=== PATIENT | female | born 1985 | race Caucasian/White ===

== ENCOUNTER 2019-03-04 11:03 | Emergency (ER) | payer OTHER ==
[~2019-03-04] VITALS: Ht 175.3 cm; Wt 64.4 kg
[2019-03-04 11:03] VITALS: BP 126/71
[2019-03-04 11:31] LABS: BASO % 1 % (0-3); EOS # 0.2 x10^3/uL (0.0-0.7); EOS % 4 % (0-3); HEMATOCRIT 38.6 % (36.0-47.0); HEMOGLOBIN 13.1 g/dL (12.0-15.5); LYMPH # 0.9 x10^3/uL (1.0-4.8); LYMPH % 19 % (24-48); MEAN CORPUSCULAR HEMOGLOBIN 31 pg (25-35); MEAN CORPUSCULAR HGB CONC 34 g/dL (31-37); MEAN CORPUSCULAR VOLUME 91 fL (79-100); MONO # 0.6 x10^3/uL (0.0-1.1); MONO % 13 % (0-9); NEUT % 64 % (31-73); PLATELET COUNT 187 x10^3/uL (140-400); RED BLOOD COUNT 4.23 x10^6/uL (3.50-5.40); RED CELL DISTRIBUTION WIDTH 13.1 % (11.5-14.5); WHITE BLOOD COUNT 4.7 x10^3/uL (4.0-11.0)
[2019-03-04 11:42] LABS: ALBUMIN 3.8 g/dL (3.4-5.0); ALBUMIN/GLOBULIN RATIO 1.3 (1.0-1.7); CREATININE 0.8 mg/dL (0.6-1.0); GFR 82.6; POTASSIUM 4.1 mmol/L (3.5-5.1); TOTAL BILIRUBIN 0.2 mg/dL (0.2-1.0); TOTAL PROTEIN 6.8 g/dL (6.4-8.2)
--- NOTE | 2019-03-04 11:42 | PHYS DOC ---
Adult General Chief Complaint Chief Complaint: CHEST PAIN HPI HPI 34-year-old female presents with right-sided chest pain. She started having chest pain yesterday a right-sided. She describes it as a heaviness. It now radiates through to her back at the same level. It is mild to moderate in intensity. 3 days ago, the patient had a fever and nausea. Everyone her household had similar symptoms. These resolved 2 days ago. The patient is attempting to get . She had an elevated hCG, but began having bleeding with clots yesterday. She has had miscarriage in the past and it was similar. Her last menstrual period before now was 4 weeks ago. Patient denies history of cardiac disease, pneumonia, DVTs, or PE. She does not have a known history of blood clotting disorder. She denies fever or chills at this time. She does not have shortness of breath, but has had decreased exercise tolerance and has not been working out. Review of Systems Review of Systems Constitutional: Denies fever or chills [] Eyes: Denies change in visual acuity, redness, or eye pain [] HENT: Denies nasal congestion or sore throat [] Respiratory: Denies cough or shortness of breath [] Cardiovascular: No additional information not addressed in HPI [] GI: Nausea. Denies abdominal pain, vomiting, bloody stools or diarrhea [] : Vaginal bleeding with clots[] Musculoskeletal: Denies back pain or joint pain [] Integument: Denies rash or skin lesions [] Neurologic: Denies headache, focal weakness or sensory changes [] Endocrine: Denies polyuria or polydipsia [] All other systems were reviewed and found to be within normal limits, except as documented in this note. Allergies Allergies Allergies Coded Allergies Type Severity Reaction Last Updated Verified No Known Drug Allergies 03/04/19 No Physical Exam Physical Exam Constitutional: Well developed, well nourished, no acute distress, non-toxic appearance. [] HENT: Normocephalic, atraumatic, bilateral external ears normal, oropharynx moist, no oral exudates, nose normal. [] Eyes: PERRLA, EOMI, conjunctiva normal, no discharge. [] Neck: Normal range of motion, no tenderness, supple, no stridor. [] Cardiovascular:Heart rate regular rhythm, no murmur [] Lungs & Thorax: Bilateral breath sounds clear to auscultation [] Abdomen: Bowel sounds normal, soft, no tenderness, no masses, no pulsatile masses. [] Skin: Warm, dry, no erythema, no rash. [] Back: No tenderness, no CVA tenderness. [] Extremities: No tenderness, no cyanosis, no clubbing, ROM intact, no edema. [] Neurologic: Alert and oriented X 3, normal motor function, normal sensory function, no focal deficits noted. [] Psychologic: Affect normal, judgement normal, mood normal. [] Current Patient Data Lab Results Laboratory Tests Test 03/04/19 11:12 White Blood Count 4.7 x10^3/uL (4.0-11.0) Red Blood Count 4.23 x10^6/uL (3.50-5.40) Hemoglobin 13.1 g/dL (12.0-15.5) Hematocrit 38.6 % (36.0-47.0) Mean Corpuscular Volume 91 fL (79-100) Mean Corpuscular Hemoglobin 31 pg (25-35) Mean Corpuscular Hemoglobin Concent 34 g/dL (31-37) Red Cell Distribution Width 13.1 % (11.5-14.5) Platelet Count 187 x10^3/uL (140-400) Neutrophils (%) (Auto) 64 % (31-73) Lymphocytes (%) (Auto) 19 % (24-48) L Monocytes (%) (Auto) 13 % (0-9) H Eosinophils (%) (Auto) 4 % (0-3) H Basophils (%) (Auto) 1 % (0-3) Neutrophils # (Auto) 3.0 x10^3uL (1.8-7.7) Lymphocytes # (Auto) 0.9 x10^3/uL (1.0-4.8) L Monocytes # (Auto) 0.6 x10^3/uL (0.0-1.1) Eosinophils # (Auto) 0.2 x10^3/uL (0.0-0.7) Basophils # (Auto) 0.0 x10^3/uL (0.0-0.2) EKG EKG [] Radiology/Procedures Radiology/Procedures [] Impressions: EXAM: CHEST 1 VIEW History: Chest pain COMPARISON: None available. TECHNIQUE: Single portable radiograph of the chest FINDINGS: The cardiac silhouette is unremarkable. The lungs are clear bilaterally. The costophrenic sulci are clear and well demarcated. IMPRESSION: No radiographic evidence of an acute cardiopulmonary process. Electronically signed by: Darron Steward MD (03/04/2019 12:11 PM) [facility] DICTATED AND SIGNED BY: DARRON STEWARD MD DATE: 03/04/19 1211 CC: GASTON SMITH DO; RUTH DISLA DO, MPH ~ Course & Med Decision Making Course & Med Decision Making Pertinent Labs and Imaging studies reviewed. (See chart for details) Patient's chest x-ray is unremarkable. Her labs are unremarkable. Her hCG is less than 1. Her d-dimer is negative. Her troponin is negative. Her HEART score is a 0. Not exactly sure what is causing the patient's discomfort, but it is not appear to be cardiopulmonary in nature. Its highly unlikely that she has a pulmonary embolus. She has no other abnormal vital findings to suggest one is likely. This could be musculoskeletal. It could also be post viral discomfort as she seems to have had a recent viral illness. She is stable for discharge at this time. [] Dragon Disclaimer Dragon Disclaimer This electronic medical record was generated, in whole or in part, using a voice recognition dictation system. The HEART Score for CP Pts HEART Score for Chest Pain: HEART Score for Chest Pain Response (Comments) Value History Slighlty/Non-Suspicious 0 ECG Normal 0 Age < 45 0 Risk Factors No Risk Factors 0 Troponin < Normal Limit 0 Total 0 Risk Factors: Risk Factors: DM, Current or recent (<one month) smoker, HTN, HLP, family history of CAD, obesity. Risk Scores: Score 0 - 3: 2.5% MACE over next 6 weeks - Discharge Home Score 4 - 6: 20.3% MACE over next 6 weeks - Admit for Clinical Observation Score 7 - 10: 72.7% MACE over next 6 weeks - Early Invasive Strategies Departure Departure: Impression: Primary Impression: Chest pain Additional Impression: Thoracic back pain Disposition: HOME, SELF-CARE Condition: STABLE Referrals: RUTH DISLA DO, MPH (PCP) Patient Instructions: Chest Pain (Nonspecific), [id number] Problem Qualifiers Primary Impression: Chest pain Chest pain type: unspecified Qualified Codes: R07.9 - Chest pain, unspec ified Additional Impression: Thoracic back pain Chronicity: acute Back pain laterality: right Qualified Codes: M54.6 - Pain in thoracic spine GASTON SMITH DO Mar 04, 2019 11:42
[2019-03-04] MEDS ORDERED: IV NORMAL SALINE 1,000ML 1,000 ML IV ONE (11:45)
--- NOTE | 2019-03-04 12:14 | RAD ---
EXAM: CHEST 1 VIEW History: Chest pain COMPARISON: None available. TECHNIQUE: Single portable radiograph of the chest FINDINGS: The cardiac silhouette is unremarkable. The lungs are clear bilaterally. The costophrenic sulci are clear and well demarcated. IMPRESSION: No radiographic evidence of an acute cardiopulmonary process. Electronically signed by: Darron Steward MD (03/04/2019 12:11 PM) [place] [id number]
--- NOTE | 2019-03-04 12:22 | EKG ---
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
== END 2019-03-04 13:01 | disposition home or self-care (01) ==
LOC: ER 11:03
DX: R07.89 Other chest pain (principal); M54.6 Pain in thoracic spine; N93.8 Other specified abnormal uterine and vaginal bleeding
CPT/HCPCS: 36415; 71045; 80053; 84484; 84702; 85025; 85379; 93005; 99285